=== PATIENT | male | born 1960 | race Caucasian/White ===

== ENCOUNTER 2018-05-24 10:17 | Emergency (ER) | payer OTHER ==
[~2018-05-24] VITALS: Ht 172.7 cm; Wt 79.4 kg
[2018-05-24] MEDS ORDERED: BACTRIM DS TAB1 EACH PO (10:43)
[2018-05-24] MEDS ORDERED: NABUMETONE 750750 M1 PO (10:43)
[2018-05-24 11:37] VITALS: BP 137/104
[2018-05-25] MEDS ORDERED: VIREAD150 MG PO (10:06)
== END 2018-05-24 11:38 ==
LOC: M.ERS 10:17
DX: L03.012 Cellulitis of left finger (principal); L02.512 Cutaneous abscess of left hand; F17.200 Nicotine dependence, unspecified, uncomplicated

== ENCOUNTER 2018-05-25 09:54 | Emergency (ER) | payer OTHER ==
[~2018-05-25] VITALS: Ht 172.7 cm; Wt 79.4 kg
[~2018-05-25 09:54] MED LIST: BACTRIM DS TAB1 EACH PO; NABUMETONE 750750 M1 PO
[2018-05-25 10:03] VITALS: BP 145/110
[2018-05-25] MEDS ORDERED: VIREAD150 MG PO (10:06)
== END 2018-05-25 10:29 | disposition home or self-care (01) ==
LOC: M.ERS 09:54
DX: S60.427A Blister (nonthermal) of left little finger, initial encounter (principal); X58.XXXA Exposure to other specified factors, initial encounter; Y93.89 Activity, other specified; Y92.89 Other specified places as the place of occurrence of the external cause; Y99.8 Other external cause status